=== PATIENT | male | born 1940 | race Caucasian/White ===

== ENCOUNTER 2018-12-16 14:07 | Emergency (ER) | payer MEDICARE, OTHER ==
[2018-12-16 14:19] VITALS: BP 151/80
--- NOTE | 2018-12-16 14:36 | UC ---
General HPI - HPI Summary HPI Summary: Pleasant 78 yo gentleman presents with spouse, c/o double vision in L eye for the last 4-5 hours. Over the last few months, has had short lived simlar symptoms. No recent fever / chills. No sob / cp / palpitations. No rash. Describes double vision as about 45 degrees up to the left in the left eye ( using R eye as reference) Hx aneurysm repain in 2006. 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 Residual sx of "no reflexes" in legs since 2006. Able to hike , with sticks, and has been hiking until recently in the [place], [place]. Was seen in the ED [place], for R flank pain - reports that no renal stone, thinks could be related to muscle spasm. No new weakness (hx BLE weakness d/t prior GB dz). Was outside doing yard work this am. - History of Current Complaint Chief Complaint: UCEye Stated Complaint: DOUBLE VISION Time Seen by Provider: 12/16/18 14:17 Hx Obtained From: Patient, Family/Curing Press Maintainer Pain Intensity: 0 - Allergy/Home Medications Allergies/Adverse Reactions: Allergies Allergy/AdvReac Type Severity Reaction Status Date / Time No Known Allergies Allergy Verified 12/16/18 14:09 Home Medications: Home Medications Bisoprolol TAB* [Zebeta TAB*] 5 mg PO DAILY 12/16/18 [History Confirmed 12/16/18 ] Multivit-Min/FA/Lycopen/Lutein [Centrum Silver Men Tablet] 1 each PO DAILY 12/16 [History Confirmed 12/16/18] Omeprazole CAP (NF) [Prilosec CAP* 20 MG] 20 mg PO DAILY 12/16/18 [History Confirmed 12/16/18] PMH/Surg Hx/FS Hx/Imm Hx Previously Healthy: Yes - Surgical History Surgical History: Yes Surgery Procedure, Year, and Place: bilat cataracts 2017. subarachnoid aneurysm repair 2006. rotator cuff repair. L ACL repai - Family History Known Family History: Positive: Non-Contributory - Social History Alcohol Use: Rare Substance Use Type: None Smoking Status (MU): Former Smoker Length of Time of Smoking/Using Tobacco: 20 years When Did the Patient Quit Smoking/Using Tobacco: 1982 Review of Systems All Other Systems Reviewed And Are Negative: Yes Constitutional: Positive: Negative Skin: Positive: Negative Eyes: Positive: Other - see hpi ENT: Positive: Other Respiratory: Positive: Negative Cardiovascular: Positive: Negative Gastrointestinal: Positive: Negative Genitourinary: Positive: Negative Motor: Positive: Other - see hpi Neurovascular: Positive: Other - see hpi Musculoskeletal: Positive: Other: - see hpi Neurological: Positive: Other Psychological: Positive: Negative Is Patient Immunocompromised?: No Physical Exam Triage Information Reviewed: Yes Appearance: Well-Appearing, Well-Nourished Vital Signs: Initial Vital Signs Temp 97.8 F 12/16/18 14:11 Pulse 70 12/16/18 14:11 Resp 20 12/16/18 14:11 BP 151/80 12/16/18 14:11 Pulse Ox 98 12/16/18 14:11 Vital Signs Reviewed: Yes Eye Exam: Other - PERRLA + periph 1vs2 finger lat vis navarrete evaluation L eye does not fully look superior and lateral ENT: Positive: Pharynx normal, Other - + sun exposure Neck exam: Normal - no esme carotid bruits Neck: Positive: Supple, Nontender Respiratory Exam: Normal Respiratory: Positive: Chest non-tender, Lungs clear, Normal breath sounds, No respiratory distress, No accessory muscle use Cardiovascular Exam: Normal Cardiovascular: Positive: RRR, No Murmur, Pulses Normal, Brisk Capillary Refill Abdominal Exam: Normal Abdomen Description: Positive: Nontender Musculoskeletal Exam: Other - moves x 4 exts, able to walk, per pt is baseline Neurological Exam: Other - see eye exam see ble notes + sense smell + LT x all facial dermatomes No droop Tongue protrudes ok Good shrug, + ax n sens present Able to swallow ok Psychological: Positive: Normal Response To Family Skin Exam: Normal - no visible or reported rash Course/Dx - Course Course Of Treatment: EKG - SR 68 bmp, pr 196 qtc 424 Reviewed coa / tx plan with pt and - I highly recommend ED evaluation and management. They carefully considered and will go. Decline EMS transport. Questions as posed answered to the best of my ability. Spoke with RUSS Andres 13:35 - Diagnoses Provider Diagnosis: Diplopia Discharge - Sign-Out/Discharge Documenting (check all that apply): Patient Departure All imaging exams completed and their final reports reviewed: No Studies - Discharge Plan Condition: Stable Disposition: HOME Patient Education Materials: Diplopia (ED) Referrals: Mika Umanzor MD [Primary Care Provider] - Additional Instructions: Go directly to the Emergency Department. Please stop and call 911 if problems in the meantime. - Billing Disposition and Condition Condition: STABLE Disposition: Home
== END 2018-12-16 14:42 | disposition home health service (06) ==
LOC: UCEAST 14:07
DX: H53.2 Diplopia (principal); Z87.891 Personal history of nicotine dependence
CPT/HCPCS: 99202; G0463

== ENCOUNTER 2019-07-29 07:40 | Inpatient (IN) | payer MEDICARE, OTHER ==
--- NOTE | 2019-07-21 16:32 | HP ---
HISTORY AND PHYSICAL: DATE OF ADMISSION/SURGERY: 07/29/19 DATE OF OFFICE VISIT: 07/18/19 SURGEON: Krys Javier MD * (DICTATED BY RUSS PALMER) PROCEDURE: Left total knee arthroplasty. CHIEF COMPLAINT: Left knee pain. HISTORY OF PRESENT ILLNESS: Mr. 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 He has failed conservative treatment and elected to proceed with a left total knee arthroplasty. PAST MEDICAL HISTORY: History of cerebral aneurysm, left carotid stenosis, history of Guillain-Fostoria syndrome, basal cell carcinoma, hypertension, renal failure and AFib. PAST SURGICAL HISTORY: Repair of cerebral aneurysm, left knee arthroscopy, right shoulder rotator cuff repair, and cataract removal. CURRENT MEDICATIONS: 1. Bisoprolol/hydrochlorothiazide daily. 2. Prilosec 20 mg a day. 3. Centrum Silver. 4. Tylenol as needed. 5. Benadryl Allergy 25 mg daily. 6. Ibuprofen. 7. 81 mg aspirin. ALLERGIES: No known drug allergies. FAMILY HISTORY: Coronary artery disease. SOCIAL HISTORY: He is a 79-year-old gentleman, lives with his . He does not smoke. REVIEW OF SYSTEMS: A complete 14-point review of systems was reviewed with the patient. Positive for GERD and kidney disease. He denies history of DVT, PE, hepatitis, HIV, or anesthesia problems. PHYSICAL EXAMINATION GENERAL: He is well developed, well nourished, in no acute distress. VITAL SIGNS: He stands 69 inches tall, weighs 251 pounds. His blood pressure is 158/82, his heart rate is 81. HEENT: Normocephalic, atraumatic. NECK: Supple. No palpable lymph nodes. PULMONARY: Lungs are clear to auscultation bilaterally. CARDIO: Regular rate and rhythm. Strong S1, S2. ABDOMEN: Soft, nontender, nondistended. NEUROLOGICAL: He is alert and oriented x3. MUSCULOSKELETAL: Left lower extremity, the skin is intact. There are no open wounds or abrasions. There is moderate effusion of the left knee joint. Some tenderness along the medial and lateral joint line. Range of motion is 20 to 100 degrees of flexion with significant patellofemoral crepitus. There is a significant varus deformity of the knee. There is no lower extremity reflexes on exam and he ambulates with a cane with an antalgic gait. He does have intact sensation and a 2+ dorsalis pedis pulse. ASSESSMENT AND PLAN: Mr. Leroy is a 79-year-old gentleman with end-stage osteoarthritis of the left knee. He has failed conservative treatment and elected to proceed with a left total knee arthroplasty. Surgery is scheduled for 07/29/[address] Javier discussed the risks and benefits of the surgery at today's visit and all of his questions were answered. He will follow up with Dr. Javier 2 weeks after the surgery. RUSS PALMER [id number]/[facility] #: [id number] MTDPatricia
[~2019-07-29 07:40] MED LIST: Buffered Lidocaine 1% SYRIN* 1 ML/SYRINGE INTRADERM ONE; Lactated Ringers 1000 ML Bag* 1,000 ML IV SCH
--- OUTSIDE RECORDS SUMMARY | 2019-07-29 07:44 | XMS REPORT | Continuity of Care Document ---
:1940 External Reference #:[id number] Author Name Krys Javier M.D. (transmitted by agent of provider Rakel Pastor) Address [address] [place] [address] [place] [address] Care Team Providers Name Role Phone Mika Umanzor MD - Family Medicine Care Team Information Estimator [phone] Alirio Cisneros, PH.D. - Neurological Care Team Information Estimator Surgery Problems Active Problems Provider Date History of Guillain Clifton syndrome Harshal Payne M.D. Onset: 08/27/2015 Localized, primary osteoarthritis Krys Javier M.D. Onset: 06/24/2019 Social History Type Date Description Comments Sex Unknown ETOH Use Drinks Alcoholic Beverages Occasionally Tobacco Use Start: Unknown End: Patient is a former smoker Unknown Recreational Drug Use Never Used Drugs Smoking Status Reviewed: 07/18/19 Patient is a former smoker Exercise Type/Frequency Exercises sporadically Allergies, Adverse Reactions, Alerts Description No Known Drug Allergies Medications Active Medications SIG Qnty Indications Ordering Provider Date Bisprolol HCTZ every day Harshal Payne, 12/17/2018 [place] Prilosec OTC 1 po qd Unknown 20mg Tablets Centrum Silver 1 po qd Unknown Tablets Tylenol 1 tab po prn pain Unknown 325mg Tablets Ibuprofen 2 tabs by mouth Unknown 200mg Capsules every 6 hours as needed Aspirin Adult Low Dose 1 by mouth every Unknown day 81mg Tablets Immunizations Description No Information Available Vital Signs Date Vital Result Comment 07/18/2019 7:59am Height 69 inches 5'9" Weight 251.00 lb Heart Rate 81 /min BP Systolic 158 mmHg BP Diastolic 82 mmHg Body Temperature 99.2 F Pain Level 0 BMI (Body Mass Index) 37.1 kg/m2 07/08/2019 9:38am Height 69 inches 5'9" Weight 256.50 lb with shoes Heart Rate 64 /min BP Systolic Sitting 128 mmHg BP Diastolic Sitting 86 mmHg BMI (Body Mass Index) 37.9 kg/m2 Results Description No Information Available Procedures Description No Information Available Medical Devices Description No Information Available Encounters Type Date Location Provider Dx Diagnosis Office Visit 06/24/2019 [facility] Krys Javier, M25.562 Pain in left knee 8:00a at [place] M25.462 Effusion, left knee M17.0 Bilateral primary osteoarthritis of knee M25.561 Pain in right knee M25.461 Effusion, right knee Assessments Date Code Description Provider 07/18/2019 M25.562 Pain in left knee Krys Javier M.D. 07/18/2019 M25.462 Effusion, left knee Krys Javier M.D. 07/18/2019 M17.0 Bilateral primary osteoarthritis of knee Krys Javier M.D. 07/08/2019 G61.0 Guillain-Clifton syndrome Harshal Payne M.D. 07/08/2019 R20.0 Anesthesia of skin Harshal Payne M.D. 06/24/2019 M25.562 Pain in left knee Krys Javier M.D. 06/24/2019 M25.462 Effusion, left knee Krys Javier M.D. 06/24/2019 M17.0 Bilateral primary osteoarthritis of knee Krys Javier M.D. 06/24/2019 M25.561 Pain in right knee Krys Javier M.D. 06/24/2019 M25.461 Effusion, right knee Krys Javier M.D. Plan of Treatment Future Appointment(s):07/29/2019 10:30 am - Krys Javier M.D. at [facility] at [place]/18/2019 - Krys Javier M.D.M25.562 Pain in left kneeFollow up:Follow up: 2 weeks after [id number] Effusion, left kneeM17.0 Bilateral primary osteoarthritis of knee Functional Status Description No Information Available Mental Status Description No Information Available Referrals Description No Information Available
--- OUTSIDE RECORDS SUMMARY | 2019-07-29 07:44 | XMS REPORT | Continuity of Care Document ---
:1940 External Reference #:[id number] Author Name Krys Javier M.D. (transmitted by agent of provider Amanda Carter) Address [address] [place] [address] Care Team Providers Name Role Phone Mika Umanzor MD - Family Medicine Care Team Information Fruit Or Nut Picker [phone] Alirio Cisneros, PH.D. - Neurological Care Team Information Fruit Or Nut Picker Surgery Problems Active Problems Provider Date History of Guillain Hutchinson syndrome Harshal Payne M.D. Onset: 08/27/2015 Localized, primary osteoarthritis Krys Javier M.D. Onset: 06/24/2019 Social History Type Date Description Comments Sex Unknown ETOH Use Drinks Alcoholic Beverages Occasionally Tobacco Use Start: Unknown End: Patient is a former smoker Unknown Smoking Status Reviewed: 06/24/19 Patient is a former smoker Exercise Type/Frequency Exercises sporadically Allergies, Adverse Reactions, Alerts Description No Known Drug Allergies Medications Active Medications SIG Qnty Indications Ordering Provider Date Bisprolol HCTZ every day Harshal Payne, 12/17/2018 [place] Prilosec OTC 1 po qd Unknown 20mg Tablets DR Centrum Silver 1 po qd Unknown Tablets Tylenol 1 tab po prn Unknown 325mg Tablets pain Benadryl Allergy 1 tab po prn 30caps Unknown 25mg Capsules Immunizations Description No Information Available Vital Signs Date Vital Result Comment 06/24/2019 8:23am Height 69 inches 5'9" Weight 244.00 lb Heart Rate 60 /min BP Systolic 140 mmHg BP Diastolic 78 mmHg Respiratory Rate 18 /min Pain Level 1 BMI (Body Mass Index) 36.0 kg/m2 12/17/2018 11:01am Height 69 inches 5'9" Weight 227.00 lb Heart Rate 76 /min BP Systolic Sitting 150 mmHg BP Diastolic Sitting 72 mmHg Respiratory Rate 18 /min BMI (Body Mass Index) 33.5 kg/m2 Results Test Acquired Date Facility Test Result H/L Range Note Inr/Protime 01/13/2019 [facility] Inr 0.99 Normal 0.82-1.[address] [place] [address] [phone] Laboratory test 01/13/2019 [facility] Partial 35.4 Normal 26.0 -38.[address] [place] [address] PTT [phone] CBC Auto Diff 01/13/2019 [facility] White Blood 6.7 10^3/uL Normal 3.5-10.[address] [place] [address] [phone] Red Blood Count 4.94 10^6/uL Normal 4.18-5.48 Hemoglobin 14.0 g/dL Normal 14.0-18.0 Hematocrit 42 % Normal 42-52 Mean Corpuscular Volume 86 fL Normal 80-94 Mean Corpuscular Hemoglobin 28 pg Normal 27-31 Mean Corpuscular HGB Conc 33 g/dL Normal 31-36 Red Cell Distribution Width 16 % High 10-15 Platelet Count 244 10^3/uL Normal 150-450 Mean Platelet Volume 8.1 fL Normal 7.4-10.4 Abs Neutrophils 4.4 10^3/uL Normal 1.5-7.7 Abs Lymphocytes 1.4 10^3/uL Normal 1.0-4.8 Abs Monocytes 0.8 10^3/uL Normal 0-0.8 Abs Eosinophils 0.2 10^3/uL Normal 0-0.6 Abs Basophils 0.1 10^3/uL Normal 0-0.2 Abs Nucleated RBC 0.0 10^3/uL Granulocyte % 64.5 % Lymphocyte % 21.0 % Monocyte % 11.3 % Eosinophil % 2.3 % Basophil % 0.9 % Nucleated Red Blood Cells % 0.0 Comp Metabolic 01/13/2019 [facility] Sodium 136 mmol/L Normal 135-[address] [place] [address] [phone] Potassium 4.7 mmol/L Normal 3.5-5.0 Chloride 103 mmol/L Normal 101-111 Co2 Carbon Dioxide 28 mmol/L Normal 22-32 Anion Gap 5 mmol/L Normal 2-11 Glucose 82 mg/dL Normal 70-100 Blood Urea Nitrogen 25 mg/dL High 6-24 Creatinine 0.97 mg/dL Normal 0.67-1.17 BUN/Creatinine Ratio 25.8 High 8-20 Calcium 9.6 mg/dL Normal 8.6-10.3 Total Protein 7.3 g/dL Normal 6.4-8.9 Albumin 4.4 g/dL Normal 3.2-5.2 Globulin 2.9 g/dL Normal 2-4 Albumin/Globulin Ratio 1.5 Normal 1-3 Total Bilirubin 0.50 mg/dL Normal 0.2-1.0 Alkaline Phosphatase 63 U/L Normal 34-104 Alt 25 U/L Normal 7-52 Ast 23 U/L Normal 13-39 Egfr Non- 75.2 >60 Egfr 91.1 >60 2 1 Standard intensity warfarin therapeutic range: 2.0-3.0 High intensity warfarin therapeutic range: 2.5-3.5 2 Because ethnic data is not always readily available, this report includes an eGFR for both -Americans and non- Americans. The National Kidney Disease Education Program (NKDEP) does not endorse the use of the MDRD equation for patients that are not between the ages of 18 and 70, are , have extremes of body size, muscle mass, or nutritional status, or are non- or non-. According to the National Kidney Foundation, irrespective of diagnosis, the stage of the disease is based on the level of kidney function: Stage Description GFR(mL/min/1.73 m(2)) 1 Kidney damage with normal or decreased GFR 90 2 Kidney damage with mild decrease in GFR 60-89 3 Moderate decrease in GFR 30-59 4 Severe decrease in GFR 15-29 5 Kidney failure <15 (or dialysis) Procedures Description No Information Available Medical Devices Description No Information Available Encounters Type Date Location Provider Dx Diagnosis Office Visit 06/24/2019 [facility] Krys Javier, M25.562 Pain in left knee 8:00a at [place] M25.462 Effusion, left knee M17.12 Unilateral primary osteoarthritis, left knee M25.561 Pain in right knee M25.461 Effusion, right knee M17.11 Unilateral primary osteoarthritis, right knee Assessments Date Code Description Provider 06/24/2019 M25.562 Pain in left knee Krys Javier M.D. 06/24/2019 M25.462 Effusion, left knee Krys Javier M.D. 06/24/2019 M17.12 Unilateral primary osteoarthritis, left knee Krys Javier M.D. 06/24/2019 M25.561 Pain in right knee Krys Javier M.D. 06/24/2019 M25.461 Effusion, right knee Krys Javier M.D. 06/24/2019 M17.11 Unilateral primary osteoarthritis, right knee Krys Javier M.D. Plan of Treatment 06/24/2019 - Krys Javier M.D.M25.562 Pain in left kneeM25.462 Effusion, left kneeM17.12 Unilateral primary osteoarthritis, left kneeNew Therapy:Physical TherapyFollow up:Follow up: 7-10 days before [id number] Pain in right kneeM25.461 Effusion, right kneeM17.11 Unilateral primary osteoarthritis, right knee Functional Status Description No Information Available Mental Status Description No Information Available Referrals Description No Information Available
--- OUTSIDE RECORDS SUMMARY | 2019-07-29 07:44 | XMS REPORT | Summary of Care ---
:1940 Author Organization [facility] Address [address] [place] [address] Care Team Providers Name Role Phone Mika Umanzor Primary Care Provider Reason for Visit Reason Comments Other pt presents for pre-op clearance. Left knee replacement scheduled for 04/03 Encounter Details Date Type Department Care Team Description 07/04/2019 Office Visit [facility] Mika Umanzor MD Pre-op evaluation (Primary Dx); Practice [address] [facility] Primary osteoarthritis of both knees; [address] [place] [address] Hypertension, unspecified type; [place] [address] Hx of Guillain-[place] syndrome; [phone] S/P Subarachnoid Hemorrhage (Fax) Allergies Active Allergy Reactions Severity Noted Date Comments No Known Allergies Other 11/09/2007 documented as of this encounter (statuses as of 07/04/2019) Medications Medication Sig Dispensed Refills Start Date End Date Status Centrum Silver Oral Tab Take 1 Tab by 0 Active mouth DAILY. Omeprazole Magnesium Take 1 Cap by 0 Active (PRILOSEC OTC PO) mouth DAILY. aspirin (ECOTRIN) 81 MG Take 81 mg by 0 Active Oral Tab EC mouth DAILY. bisoprolol-hydrochloroth Take 1 Tab by 90 Tab 1 04/26/2019 Active iazide (ZIAC) 2.5-6.25 mouth DAILY. MG Oral Tab acetaminophen (TYLENOL) Take by mouth. 0 Active 325 MG Oral Tab ibuprofen (MOTRIN) 200 Take 400 mg by 0 Active MG Oral Tab mouth EVERY SIX HOURS NEEDED for Pain. documented as of this encounter (statuses as of 07/04/2019) Active Problems Problem Noted Date Pseudophakia of both eyes 02/22/2019 Primary osteoarthritis of left knee 04/19/2015 Knee pain 01/08/2015 Knee pain, left 04/14/2013 Obesity 10/09/2012 Overview: This patient's BMI This patient's BMI has been calculated and is above average, and BMI management plan is completed. General patient education discussion including: weight loss link to reduction of r isk factors for cardiac and other diseases, importance of long-term maintenance treatment in weight loss, and accomplish with exercise as tolerated and diet control Kidney stone 12/16/2009 OA (osteoarthritis) of knee 12/16/2009 Dyslipidemia 12/14/2009 GERD (gastroesophageal reflux disease) 12/14/2009 Sensory hearing loss, bilateral 05/23/2009 S/P Subarachnoid Hemorrhage 06/21/2008 Overview: 09/16/2006, transferred to [facility]. Aneurysm of Right Middle Cerebral Artery 06/21/2008 Overview: S/P clipping procedure done at [facility] Hypertension documented as of this encounter (statuses as of 07/04/2019) Immunizations Name Administration Dates Next Due ZOSTER (ZOSTAVAX) VACCINE 04/29/2006 documented as of this encounter Social History Tobacco Use Types Packs/Day Years Used Date Former Smoker Pipe 20 Quit: 06/15/1979 Smokeless Tobacco: Never Used Alcohol Use Drinks/Week oz/Week Comments Yes 5 Standard drinks or equivalent 4.2 Sex Assigned at Date Recorded Not on file Job Start Date Occupation Industry Not on file Not on file Not on file Travel History Travel Start Travel End No recent travel history available. documented as of this encounter Last Filed Vital Signs Vital Sign Reading Time Taken Comments Blood Pressure 132/80 07/04/2019 1:43 PM EST Pulse 69 07/04/2019 1:43 PM EST Temperature - - Respiratory Rate - - Oxygen Saturation 95% 07/04/2019 1:43 PM EST Inhaled Oxygen Concentration - - Weight 113.7 kg (250 lb 9.6 oz) 07/04/2019 1:43 PM EST Height 175.3 cm (5' 9") 07/04/2019 1:43 PM EST Body Mass Index 37.01 07/04/2019 1:43 PM EST documented in this encounter Progress Notes Mika Umanzor MD - 07/04/2019 1:40 PM EST PATIENT: Giancarlo Leroy : 1940 DATE OF SERVICE: 07/04/2019 Subjective SUBJECTIVE: Giancarlo Leroy is a 79-y.o. male who presents to the office today for a preoperative consultation at the request of Dr Javier , who will perform a left knee replacement on 07/25. Patient complains of bilateral knee pain for at least a decade He was hesitant to do the replacement because of his history of Guillain [place] : and not sure if he as going to walk any better as still feels imbalanced And not sure if that is jis knees or GB . Patient denies cardiac symptoms: chest pain, palpitations, near-syncope, orthopnea, paroxysmal nocturnal dyspnea, claudication, lower extremity edema. Past history of pulmonary embolism/deep vein thrombosis: no. There is a history of bleeding complications: no Past history of anesthetic problem: No real anesthesia since Guillain [place] . Exercise capacity: Can you walk 2 blocks on level ground, Yes Count the number of risk factors in the revised Mcknight cardiac risk index. ( RCRI): 0 High risk procedure: eg vascular surgery, any open intraperitoneal or intrathoracic 0 History of ischemic heart disease (history of WI or a positive exercise test , current complaint of chest pain considered to be secondary to myocardial ischemia, use of nitrate therapy, or ECG with pathological Q waves; do not count prior coronary revascularization procedure unless one of the other criteria for ischemic heart disease is present) 0 Hx of CHF, either systolic or diastolic 1 History of cerebrovascular disease (TIA or Stroke) 0 Diabetes mellitus requiring treatment with insulin 0 Preoperative serum creatinine >2.0 mg/dl The risk of cardiac , nonfatal myocardial infarction, and nonfatal cardiac arrest according to the number of above risk predictors is estimated to be: One risk factor - 1.0 percent (95% CI: 0.5 - 1.4) Screening for sleep apnea: Stop-Bang Snoring: Do you snore loudly (louder than talking or heard through closed doors )? Tired: Do you often feel tired, fatigued, or sleepy during the day? Observed: Has anyone observed you stop breathing during your sleep? 1 Pressure: Do you have or are you being treated for high blood pressure? 1 BMI: >35 kg/m2? 1 Age: >50? 1 Neck circumference: >40 cm? 1 Gender: Male? "High risk" for LEXIE: (> =) 3 questions "yes" Screening for Alzheimer's 1. During the past 12 months, have you experienced confusion or memory loss that is happening more often or is getting worse? No 2. During the past 7 days, did you need help with others to perform everyday activities such as eating, getting dressed, grooming, bathing, walking, or using the toilet? No 3. During the past 7 days, did you need help from others to take care of things such as laundry and housekeeping, banking, shopping, using the telephone, food preparation, transportation, or taking your own medications? 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 Sinusitis, chronic Family History Problem Relation Age of Onset Heart Mother CHF Current Outpatient Medications Medication Sig acetaminophen (TYLENOL) 325 MG Oral Tab Take by mouth. aspirin (ECOTRIN) 81 MG Oral Tab EC Take 81 mg by mouth DAILY. bisoprolol-hydrochlorothiazide (ZIAC) 2.5-6.25 MG Oral Tab Take 1 Tab by mouth DAILY. Centrum Silver Oral Tab Take 1 Tab by mouth DAILY. ibuprofen (MOTRIN) 200 MG Oral Tab Take 400 mg by mouth EVERY SIX HOURS NEEDED for Pain. Omeprazole Magnesium (PRILOSEC OTC PO) Take 1 Cap by mouth DAILY. No current facility-administered medications for this visit. Allergies Allergen Reactions Nka [No Known Allergies] Other Social History Socioeconomic History Marital status: Spouse name: Not on file Number of children: Not on file Years of education: Not on file Highest education level: Not on file Occupational History Not on file Social Needs Financial resource strain: Not on file Food insecurity Worry: Not on file Inability: Not on file Transportation needs Medical: Not on file Non-medical: Not on file Tobacco Use Smoking status: Former Smoker Years: 20.00 Types: Pipe Last attempt to quit: 06/15/1979 Years since quittin.0 Smokeless tobacco: Never Used Substance and Sexual Activity Alcohol use: Yes Alcohol/week: 4.2 standard drinks Types: 5 Standard drinks or equivalent per week Drug use: No Sexual activity: Not on file Lifestyle Physical activity Days per week: Not on file Minutes per session: Not on file Stress: Not on file Relationships Social connections Talks on phone: Not on file Gets together: Not on file Attends church service: Not on file Active member of club or organization: Not on file Attends meetings of clubs or organizations: Not on file Relationship status: Not on file Intimate partner violence Fear of current or ex partner: Not on file Emotionally abused: Not on file Physically abused: Not on file Forced sexual activity: Not on file Other Topics Concern Not on file Social History Narrative Not on file REVIEW OF SYSTEMS: CONSTITUTIONAL: Weight up due to his decrease in activity . EARS, NOSE, MOUTH, THROAT and FACE: No URI. GASTROINTESTINAL: PPI works. BM normal GENITOURINARY: negative. NEUROLOGICAL: Reports Dr Payne said ok for surgery . BEHAVIORAL/PSYCH: negative. The patient has dentures: No The patient has hearing aids: Yes Objective OBJECTIVE: BP 132/80 (BP Location: Left arm, Patient Position: Sitting) | Pulse 69 | Ht 5 ' 9" (1.753 m) | Wt250 lb 9.6 oz (113.7 kg) | SpO2 95% | BMI 37.01 kg/m Exam is stable but up 10 lb no apparent distress, eyes clear, ears with aides oral-moist, no suspicious lesions. Neck supple, without masses. Heart regular without murmur. Lungs clear. Abdomensoft non-tender no masses. Extremity no clubbing cyanosis trace edema Knees in varus with decreased rom of the knees Skin no suspicious lesions. Dress and hygiene good Good eye contact Thoughts and speech normal Affect Appropriate Mood normal .EKG normal ASSESSMENT: No contraindications to planned surgery 1. Pre-op evaluation 2. Primary osteoarthritis of both knees 3. Hypertension, unspecified type well controlled, check lytes today 4. 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 5. S/P Subarachnoid Hemorrhage recent testing shows left carotid stenosed 6. Patient requires perioperative deep vein thrombosis prophylaxis: Per protocol. 7. Proceed with surgery as planned. No food or liquids the morning of surgery. Call surgeon if develop respiratory illness, fever, or other illness.. Author: Mika Umanzor MD 07/04/2019 14:02 documented in this encounter Plan of Treatment Date Type Specialty Care Team Description 08/10/2019 Office Visit Audiology [facility]ho[facility] Palafox, AuD [address] [place] [address] Name Type Priority Associated Diagnoses Order Schedule AMBULATORY 12 LEAD EKG EKG Routine Pre-op evaluation Ordered: 07/04/2019 (GLOBAL) Health Maintenance Due Date Last Done Comments DTaP/Tdap/Td Vaccines (1 - 1953 Tdap) HIV SCREENING 1957 ZOSTER IMMUNIZATION SERIES (2 06/24/2006 04/29/2006 of 3) FALL RISK ASSESSMENT 2007 PNEUMOCOCCAL 65+YRS (1 of 2 - 2007 PCV13) MEDICARE ANNUAL WELLNESS 06/19/2015 06/19/2014 VISIT DEPRESSION SCREENING 09/17/2019 09/16/2018, 09/16/2018 INFLUENZA VACCINE (#1) 2030 Postponed from 02/13/2019 (Other) HEPATITIS A IMMUNIZATION Aged Out No longer eligible based SERIES on patient's age to complete this topic HPV IMMUNIZATION SERIES Aged Out No longer eligible based on patient's age to complete this topic MENINGOCOCCAL VACCINE IMM Aged Out No longer eligible based on patient's age to complete this topic documented as of this encounter Goals Goal Patient Goal Associated Recent Patient-Stated? Author Type Problems Progress Blood Pressure Blood Pressure 132/80 No Noé, < 150/90 (07/04/2019 MD Mika 1:43 PM EST) Note: This is an individualized treatment (blood pressure) goal for Giancarlo Leroy: Displayed above (on the left) is your goal for blood pressure control. Your most recent blood pressure is also shown above, on the right. You should try to achieve blood pressures that are lower than your goal listed above (on the left). Weight loss vs. 18 mo Lifestyle 2.4 (07/04/2019 1:43 PM EST) No Mika Umanzor MD max (lbs) >= 10 Note: This is an individualized lifestyle goal for Giancarlo Leroy: Your body mass index (BMI) is more than 30. You should lose weight. A reasonable starting goal is to lose 10 pounds. Displayed above is how many pounds you have lost thus far towards your 10 pound weight loss goal. Take all prescribed medications as directed Self-management No Mika Umanzor MD Note: This is an individualized self-management goal for Giancarlo Leroy: Please take all prescribed medications as directed. 1. Do not skip doses. If you cannot afford your medications, talk with your doctor. 2. Use a pill reminder system such as a pill box if needed. Your pharmacist can help you with this. 3. Contact your Pharmacy 5 days before your medication runs out. If you cannot take your medications for any reasons, talk with your doctor. 4. Please bring all of your medication bottles and inhalers (or a list of all your medications/inhalers) with you to every visit. Potential barriers to meeting all of your care plan goals will continue to be addressed on an ongoing basis. documented as of this encounter Implants Implanted Type Area Nurse Outreach Case Manager Device Shelf Expiration Model / Serial Identifier Date / Lot Iol, [id number] 13.5 Diopter - [id number] STORZ [id number] / Implanted: Qty: 1 on 12/08/2016 by Jamie Lancaster MD at [facility] [id number] / Iol, [id number] 12.0 Diopter - [id number] STORZ [id number] / Implanted: Qty: 1 on 12/22/2016 by Jamie Lancaster MD at [facility] [id number] / documented as of this encounter Procedures Procedure Name Priority Date/Time Associated Diagnosis Comments BASIC METABOLIC Routine 07/04/2019 2:45 PM Pre-op evaluation Results for this PANEL EST procedure are in the results section. documented in this encounter Results BASIC METABOLIC PANEL (07/04/2019 2:45 PM EST) [facility] Signature Glucose 96 70 - 99 mg/dl [facility] BUN 20 9 - 20 mg/dl [facility] Creatinine 0.9 0.8 - 1.5 mg/dl [facility] Sodium 138 134 - 145 mmol/L [facility] Potassium 4.6 3.5 - 5.1 mmol/L [facility] Chloride 104 98 - 107 mmol/L [facility] CO2 25 22 - 30 mmol/L [facility] Calcium 9.6 8.3 - 10.1 mg/dl [facility] eGFR >60 See Interpretation [facility] Comment: Below ml/min/1.73ml GROUP Estimated GFR Interpretation: Sq LABORATORY Above 60ml/min/1.73m2 = Normal Renal Function 30-59 ml/min/1.73m2 = Stage 3 Chronic Kidney Disease 15-29 ml/min/1.73m2 = Stage 4 Chronic Kidney Disease Less than 15 ml/min/1.73m2 = Stage 5 Chronic Kidney Disease The GFR value is calculated using the Modification of Diet in Renal Disease ( MDRD) Study Equation which can be found at: https://www.kidney.org/content/zxmz-lgqum-obdrficc BUN/Creatinine 22 6 - 22 RATIO [facility]ORATORY Anion Gap 9 3 - 11 mmol/L [facility] Specimen Blood - Blood specimen (specimen) Performing Organization Address City/State[facility] Phone Number [facility] [address] [place] [address] [phone] documented in this encounter Visit Diagnoses Diagnosis Pre-op evaluation Preoperative examination, unspecified Primary osteoarthritis of both knees Primary localized osteoarthrosis, lower leg Hypertension, unspecified type Hx of Guillain[place] syndrome Personal history of other disorders of nervous system and sense organs S/P Subarachnoid Hemorrhage Subarachnoid hemorrhage documented in this encounter Insurance Payer Benefit Plan / Subscriber ID Effective Dates Phone Address Type Group AETNA MEDICARE AETNA MEDICARE xxxxxxxx 2017-Present [employer] ADVANTAGE ADVANTAGE Guarantor Name Account Type Relation to Date of Phone Billing Patient Address Giancarlo Leroy Personal/Family 1940 [id number] [phone] [place] (Work) [id number] documented as of this encounter
--- OUTSIDE RECORDS SUMMARY | 2019-07-29 07:44 | XMS REPORT | Continuity of Care Document ---
:1940 External Reference #:[id number] Author Name Krys Javier M.D. (transmitted by agent of provider Aaliyah Adair) Address [address] [place] [address] Care Team Providers Name Role Phone Mika Umanzor MD - Family Medicine Care Team Information Make Up Artist Alirio Cisneros, PH.D. - Neurological Care Team Information Make Up Artist Surgery Problems Active Problems Provider Date History of Guillain [place] syndrome Harshal Payne M.D. Onset: 08/27/2015 Localized, [...] Test Result H/L Range Note Inr/Protime 01/13/2019 [facility] Inr 0.99 Normal 0.82-1.[address] [place] [address] [phone] Laboratory test 01/13/2019 [facility] Partial 35.4 Normal 26.0 -38.[address] [place] [address] PTT [phone] CBC Auto Diff 01/13/2019 [facility] White Blood 6.7 10^3/uL Normal 3.5-10.[address] [place] [address] [phone] Red Blood Count 4.94 10^6/uL Normal 4.18-5.48 [...] Blood Cells % 0.0 Comp Metabolic 01/13/2019 [facility] Sodium 136 mmol/L Normal 135-[address] [place] [address] [phone] Potassium 4.7 mmol/L Normal 3.5-5.0 Chloride 103 [...] Medical Devices Description No Information Available Encounters Description No Information Available Assessments Date Code Description Provider 06/24/2019 M25.562 Pain in left knee Krys Javier M.D. 06/24/2019 M25.462 Effusion, left knee Krys Javier M.D. 06/24/2019 M17.12 Unilateral primary osteoarthritis, left knee Krys Javier M.D. 06/24/2019 M25.561 Pain in right knee Krys Javier M.D. 06/24/2019 M25.461 Effusion, right knee Krys Javier M.D. 06/24/2019 M17.11 Unilateral primary osteoarthritis, right knee Krys Javier M.D. Plan of Treatment Future Appointment(s):07/08/2019 9:45 am [facility] 8:00 am - Krys Javier M.D. at [facility] at Mqymvs5807/29/2019 10:30 am - Krys Javier M.D. at [facility] at Wzenxh0306/24/2019 - Krys Javier M.D.M25.562 Pain in left kneeM25.462 Effusion, left kneeM17.12 Unilateral primary osteoarthritis, left kneeNew Therapy:Physical TherapyFollow up:Follow up: 7-10 days before zstdypjM95.561 Pain in right kneeM25.461 Effusion, right kneeM17.11 Unilateral primary osteoarthritis, right knee Functional Status Description No Information Available Mental Status Description No Information Available Referrals Description No Information Available
--- OUTSIDE RECORDS SUMMARY | 2019-07-29 07:44 | XMS REPORT | Continuity of Care Document ---
:1940 External Reference #:[id number] Author Name Harshal Payne M.D. (transmitted by agent of provider Tigist Owens ) Address [address], [place] [address] Care Team Providers Name Role Phone Mika Umanzor MD - Family Medicine Care Team Information Flight Service Agent [phone] Alirio Cisneros, PH.D. - Neurological Care Team Information Flight Service Agent [phone] Surgery Problems Active Problems Provider Date History of Guillain [place] syndrome Harshal Payne M.D. Onset: 08/27/2015 Localized, primary osteoarthritis Krys Javier M.D. Onset: 06/24/2019 Social History Type Date Description Comments Sex Unknown ETOH Use Drinks Alcoholic Beverages Occasionally Tobacco Use Start: Unknown End: Patient is a former smoker Unknown Recreational Drug Use Never Used Drugs Smoking Status Reviewed: 07/08/19 Patient is a former smoker Exercise Type/Frequency [...] 200mg Capsules every 6 hours as needed Immunizations Description No Information Available Vital Signs Date Vital Result Comment 07/08/2019 9:38am Height 69 inches 5'9" Weight 256.50 lb with shoes Heart Rate 64 /min BP Systolic Sitting 128 mmHg BP Diastolic Sitting 86 mmHg BMI (Body Mass Index) 37.9 kg/m2 06/24/2019 8:23am Height 69 inches 5'9" Weight 244.00 lb Heart Rate 60 /min BP Systolic 140 mmHg BP Diastolic 78 mmHg Respiratory Rate 18 /min Pain Level 1 BMI (Body Mass Index) 36.0 kg/m2 Results Test Acquired Date Facility Test Result H/L Range Note Inr/Protime 01/13/2019 [facility] Inr 0.99 Normal 0.82-1.[address] [place] [address] [phone] Laboratory test 01/13/2019 [facility] Partial 35.4 Normal 26.0 -38.[address] [place] [address] PTT [phone] CBC Auto Diff 01/13/2019 [facility] White Blood 6.7 10^3/uL Normal 3.5-10.[address] [place] [address] [phone] Red Blood Count 4.94 10^6/uL Normal 4.18-5.48 [...] Blood Cells % 0.0 Comp Metabolic 01/13/2019 [facility] Sodium 136 mmol/L Normal 135-[address] [place] [address] [phone] Potassium 4.7 mmol/L Normal 3.5-5.0 Chloride 103 [...] Location Provider Dx Diagnosis Office Visit 06/24/2019 [facility] Krys Javier, M25.562 Pain in left knee 8:00a at [place] M.D. 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 07/08/2019 R20.0 Anesthesia of skin Harshal Payne M.D. 06/24/2019 M25.562 Pain in left knee Krys Javier M.D. 06/24/2019 M25.462 Effusion, left knee Krys Javier M.D. 06/24/2019 M17.0 Bilateral primary osteoarthritis of knee Krys Javier M.D. 06/24/2019 M25.561 Pain in right knee Krys Javier M.D. 06/24/2019 M25.461 Effusion, right knee Krys Javier M.D. Plan of Treatment Future Appointment(s):07/18/2019 8:00 am - Krys Javier M.D. at [facility] at Mrcgyv6107/29/2019 10:30 am - Krys Javier M.D. at [facility] at Jhvugv9207/08/2019 - Harshal Payne M.D.G61.0 Guillain-[place] syndromeFollow up:PRNR20.0 Anesthesia of skin Functional Status Description No Information Available Mental Status Description No Information Available Referrals Description No Information Available
[2019-07-29] MEDS ORDERED: ceFAZolin 2 GM in NS PREMIX(*) 2 GM/100 ML BAG IVPB ONE (08:17)
[2019-07-29] MEDS ORDERED: Propofol* 10 MG/ML 20 ML BTL ONE ×3 (09:51→12:24)
[2019-07-29] MEDS ORDERED: Lidocaine 2% PF * 5 ML VIAL ONE (09:51)
[2019-07-29] MEDS ORDERED: Midazolam* 1 MG/ML 2 ML VIAL (2 MG) ONE (09:51)
[2019-07-29] MEDS ORDERED: ROPIVACAINE 5 MG/ML 30 ML BTL (0.5%) ONE ×2 (09:52→10:31)
[2019-07-29] MEDS ORDERED: Ketorolac INJ* 30 MG/ML 1 ML VIAL ONE ×2 (10:05→12:22)
[2019-07-29] MEDS ORDERED: Remifentanil* 2 MG VIAL ONE (11:13)
[2019-07-29] MEDS ORDERED: KETAMINE HCL* 50 MG/ML 10 ML VIAL ONE (11:13)
[2019-07-29] MEDS ORDERED: Propofol* 500 MG/50 ML BTL ONE (11:13)
[2019-07-29] MEDS ORDERED: Phenylephrine 10 MG/ML VIAL* 1 ML VIAL ONE ×2 (11:35→11:36)
[2019-07-29] MEDS ORDERED: Propofol* 100 ML ONE ×2 (12:07→13:41)
[2019-07-29] MEDS ORDERED: Ondansetron INJ* 2 MG/ML VIAL ONE (12:22)
[2019-07-29] MEDS ORDERED: Dexamethasone IV* 4 MG/ML 1 ML (4 MG) ONE (12:22)
[2019-07-29] MEDS ORDERED: Metoclopramide IV* 5 MG/ML 2 ML VIAL ONE (12:22)
[2019-07-29] MEDS ORDERED: DiMENhydriNATE IV* 50 MG/ML VIAL IV PUSH PRN (13:51)
[2019-07-29] MEDS ORDERED: Naloxone* 0.4 MG/ML 1 ML VIAL IV PRN (13:51)
--- NOTE | 2019-07-29 14:02 | OP ---
Operative Report - Blank - Operative Report Date of Operation: 07/29/19 Note: CASA LEROY 1940 Date of Surgery: 07/29/19 Krys Javier MD Public Information Coordinator: Lyndsey SOLANO did help throughout the procedure with preparation of the knee, wound retraction, manipulation of the knee, and wound closure. Anesthesiologist: Dr. Mendoza Anesthesia Type: Spinal Preoperative Diagnosis: Left severe degenerative osteoarthritis of the knee Postoperative Diagnosis: As above Procedure Performed: Left Total Knee Arthroplasty Tourniquet time: 77 minutes Complications: None Specimen: Bone and cartilage from the left knee joint sent to pathology. Hardware Used: Cemented Leroy and Nephew total knee hardware was used - For the femur a size 7 left oxiniume legion posterior stabilized femoral component, for the tibia a size 7 left korey II tibial baseplate, for the insert a size 9mm 7 -8 posterior stabilized articular polyethylene insert, and for the patella a size 38 3-peg all poly patella. Brief History/Indication: CASA LEROY was known in clinic and had a history of severe left knee pain and swelling. He failed conservative treatment with anti- inflammatories, pain pills, intra-articular injections and physical therapy. He elected to undergo left total knee arthroplasty due to continued pain and decreased quality of life. Radiographs showed severe end stage osteoarthritis of the knee with bone on bone contact. Informed consent was obtained from the patient. He understood the risks of surgery included but were not limited to: bleeding, infection, damage to nearby structures, intraoperative fracture, nerve palsy, failure of the hardware, early loosening, knee stiffness or loss of motion, anesthesia complications, stroke, heart attack, blood clot and . He wished to proceed. Intra-Operative Findings: Intraoperatively the patient was noted to have severe loss of cartilage in all 3 compartments of the knee. He had 12 degree varus deformity and 20 degree flexion contracture to start the case. Description of the Procedure: CASA LEROY was identified in the preanesthesia unit. His left knee was marked as the correct operative side. Informed consent was signed and placed in the chart. The patient was taken to the operating room and placed under anesthesia without complication. A emmanuel catheter was placed. A tourniquet was placed on the left thigh. The left lower extremity was prepped and draped in the usual sterile fashion. Preoperative time-out was made to correctly identify the patient, side and site. Appropriate intraoperative antibiotics were given within one hour of incision. Tourniquet was inflated. A midline incision was made and carried sharply down to the extensor mechanism. A new 10 blade was used to make a standard medial parapatellar arthrotomy. The patella was subluxed laterally. Electrocautery was used to dissect soft tissue off the superomedial tibia to the midsagittal plane. The knee was flexed up. The anterior horn of the lateral meniscus and the ACL were sharply incised. A drill was used to enter the distal femur. The intramedullary distal femoral cutting guide was pinned on the distal femur. The oscillating saw was used to make the distal femoral cut. The external rotation guide was pinned on the distal femur and the distal femur was sized to a size 7. The size 7 multi-cutting jig was pinned on the distal femur. The oscillating saw was used to make the appropriate 4 chamfer cuts. Next the PCL was completely released. The extramedullary tibial cutting guide was pinned on the proximal tibia and the oscillating saw was used to make the proximal tibial cut perpendicular to the mechanical axis of the tibia. The bone was carefully removed. The knee was brought out into full extension. The spacer block was placed and had excellent fit with the knee in full extension. The medial and lateral ligaments were well balanced. The flexion and extension gaps were well balanced. The knee was flexed up. Lamina food crops farm hand was placed both medially and laterally. Any remaining meniscus was removed with electrocautery. Curved osteotome was used to remove any posterior osteophytes. The tibial tray and drop clau were placed and confirmed a satisfactory tibial cut. The size 7 left femoral trial was impacted onto the distal femur. This trial had excellent fit and stability. The box for the posterior stabilized implant was prepared using a box cut osteotome and a reamer. Next a tibial tray trial and 9 mm insert trial was placed. The knee was taken through a range of motion and had full extension to 130 degrees of flexion. Patellofemoral tracking was satisfactory. The patella was inverted and sized to a size 38. Three peg holes were drilled through the size 38 drill guide. The trial patella was placed and the knee was taken through a range of motion. There was satisfactory patellofemoral tracking. All trials were removed. The tibia was subluxed anteriorly and sized to a size 7. The proximal tibial was prepared with a size 7 keel punch. All bony cut surfaces were irrigated with sterile saline and dried. Final implants were cemented into place starting with the tibia, followed by the femur, and last the patella. A 9 mm insert trial was placed and the knee was brought into full extension. Tourniquet was turned down and the knee was copiously irrigated with sterile saline. Electrocautery was used to obtain meticulous hemostasis. Once the cement had fully cured, the insert trial was removed. Any excess cement was removed from around the hardware and capsule. Final insert chosen was a 9 mm posterior stabilized Korey II articular insert size 7-8. Stability of the insert was checked and noted to be stable. The extensor mechanism was closed using number 1 vicryls. The rest of the incision was closed in a layered fashion using 0 and 2-0 vicryls. The skin was closed using 3-0 nylon suture. Sterile xeroform, 4x4s and webril were used to cover the incision. Jose M wrap and cold pack were used to cover the dressings. The patients anesthesia was reversed without difficulty. He was taken to the PACU in stable condition. Intended weight-bearing will be as tolerated.
[2019-07-29] MEDS ORDERED: Acetaminophen IV 1GM/100ML * 100 ML ONE (14:07)
[2019-07-29] MEDS ORDERED: HYDROmorphone INJ1* 1 MG/ML SYRINGE ONE ×4 (14:09→15:42)
[2019-07-29] MEDS ORDERED: Ondansetron INJ* 2 MG/ML VIAL IV PRN (14:28)
[2019-07-29] MEDS ORDERED: oxyCODONE/Acetamin 5/325 MG* TAB PO PRN ×2 (14:28)
[2019-07-29] MEDS ORDERED: Magnesium Hydroxide LIQ* 30 ML UDC PO PRN (14:28)
[2019-07-29] MEDS ORDERED: Morphine INJ* 2 MG/ML 1 ML SYRINGE (TWO MG - NEW SYRINGE VERSION) IV PRN (14:28)
[2019-07-29] MEDS ORDERED: Ondansetron ODT TAB* 4 MG PO PRN (14:28)
[2019-07-29] MEDS ORDERED: Polyethylene Glycol 3350* 17 GM PACKET PO PRN (14:28)
[2019-07-29] MEDS ORDERED: diPHENhydraMINE PO* 25 MG PO PRN (14:28)
[2019-07-29] MEDS ORDERED: diPHENhydraMINE IV* 50 MG/ML 1 ml VIAL (BENADRYL) IV PRN (14:28)
[2019-07-29] MEDS ORDERED: Temazepam CAP* 15 MG PO PRN (14:28)
[2019-07-29] MEDS ORDERED: oxyCODONE TAB* 5 MG TAB ONE (14:39)
[2019-07-29] MEDS: HYDROmorphone INJ1* 1 MG/ML SYRINGE IV PRN ×2 (14:43→14:55)
[2019-07-29] MEDS: oxyCODONE TAB* 5 MG TAB PO PRN ×3 (14:46→23:25)
[2019-07-29] MEDS: Lactated Ringers 1000 ML Bag* 1,000 ML IV SCH (16:25)
[2019-07-29] MEDS: Cyclobenzaprine TAB* 10 MG PO PRN (16:51)
[2019-07-29] MEDS: traMADol TAB* 50 MG PO PRN (18:02)
[2019-07-29] MEDS: ceFAZolin 1 GM ADVAN(*) 1 GM in NS 0.9% 50 ML* 50 ML IVPB SCH (19:59)
[2019-07-29] MEDS: Magnesium Hydroxide LIQ* 30 ML UDC PO SCH (20:08)
[2019-07-29] MEDS: Docusate CAP* 100 MG PO SCH (20:08)
--- NOTE | 2019-07-29 20:51 | CONS ---
CONSULTATION REPORT: Patient: CASA LEROY /Age: 14 1940 79 Admission Date: 07/29/19 Provider: Tanya Yen NP HOSPITAL MEDICINE CONSULTATION REPORT: DATE OF CONSULT: 07/29/19 REQUESTING PROVIDER: Dr. Javier. CONSULTING PHYSICIAN: DR. Whitlock (Dictated by Tnaya Yen REFRACTORY GRINDER OPERATOR) REASON FOR CONSULT: Co-management of chronic disease. HISTORY OF PRESENT ILLNESS: Mr. 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 Javier. Please see dictated H&P by RUSS Chopra, for complete details. In brief, the patient had ongoing pain and failed conservative measures and therefore opted for hip replacement. In the postoperative period pt has complains of severe left hip pain only. The patient is very vague with answers as pain is too great at time of assessment. Hospitalist Medicine was consulted for management of the patient's chronic medical conditions. PAST MEDICAL HISTORY: 1. Atrial fibrillation. 2. Left carotid stenosis. 3. Cerebral aneurysm. 4. 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 5. Basal cell carcinoma. 6. Hypertension. 7. Renal failure. PAST SURGICAL HISTORY: 1. Repair of cerebral aneurysm. 2. Left knee arthroscopy. 3. Right shoulder rotator cuff repair 4. Cataract repair. MEDICATIONS: Out patient are: 1. Bisoprolol/HCTZ 2. Prilosec 20mg PO QD 3. Centrum Silver PO QD 4. Aspirin 81mg PO QD 5. Tylenol PO PRN 6. Ibuprofen PO PRN ALLERGIES: No known drug allergies. FAMILY HISTORY: Father , 86 years of age, dementia. Mother in her 90s likely related to heart failure. Sister is alive and well, 72 years of age, obesity only. SOCIAL HISTORY: Former smoker, quit greater than 30 years ago, alcohol rare, denies illicit drug use. Surrogate decision maker is the patient's spouse, Kandy Lin. The patient reports he is a DNR REVIEW OF SYSTEMS: Limited review of systems as the patient is in severe pain at this time. The patient denies any fevers, unexplained loss of weight, headaches, dizziness. Head, eyes, nose and throat: The patient denies any changes in vision. Denies changes in hearing. Denies any inability to swallow. Chest: The patient denies any chest pain, shortness of breath. Respiratory: The patient denies any shortness of breath on exertion. Abdomen: The patient denies any nausea or vomiting. States that he has regular bowel movements. Denies hematuria. Denies any losses of consciousness. Denies any seizures. Denies any skin ulcerations. PHYSICAL EXAM: At this time, Mr. Leroy is lying in bed, appears to be in severe pain, grimacing and occasional spasm in leg. The patient's head is atraumatic and normocephalic. Eyes: EOMs intact. Sclera anicteric. Oral mucosa appears moist. No oropharyngeal edema. Neck: Supple, no lymphatic nodes palpated. Lungs are clear throughout all lung navarrete. Cardiac: Heart sounds S1, S2, regular. No murmurs, rubs or gallops. Abdomen: Soft, round, nontender, bowel sounds positive x4 quadrants. Extremities: +2 radial pulses, +2 pedal pulses. Strength equal in continuous churn buttermaker, strength equal pedal flexion/ extension. Neuro: The patient is alert to self and place. The patient declines to answer date. Snowboarding Instructor equal. Speech is clear when speaking. No gross focal deficits. Skin is intact. Dressing is clean, dry and intact. DIAGNOSTIC STUDIES/LAB DATA: Laboratory data from 07/18/19: White blood cells 5.8, red blood cells 5.19, hemoglobin 14.9, hematocrit 44%, platelet count 250. INR 0.97. APTT 35.7. Sodium 136, potassium 5, chloride 103, carbon dioxide 26 , BUN 23, creatinine 1, glucose 79, TSH 3.46, thyroxine 8.29. AST 23, ALT 29. ASSESSMENT AND PLAN: Mr. 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 Hospital Medicine has been consulted to co- manage chronic illness. Plan of care is as follows: 1. Status post left hip arthroplasty, managed by Ortho. 2. Hypertension. The patient will continue his bisoprolol/hydrochlorothiazide. 3. Atrial fibrillation. The patient will continue bisoprolol/ hydrochlorothiazide. 4. DVT prophylaxis. Managed by Ortho. 5. Code status. The patient is full code at this time. Would like to be DNR 6. FEN. The patient can have cardiac diet with no caffeine restrictions. Assessment and plan has been discussed with Dr. Whitlock and he is in agreement with plan. Thank you for allowing us to participate in the care of this patient. We will follow during the admission. TANYA YEN, STELLA [id number]/[facility] #: [id number] JOHNNIE
[2019-07-29] MEDS: Acetaminophen TAB* 325 MG PO SCH (22:17)
[2019-07-30] MEDS: Lactated Ringers 1000 ML Bag* 1,000 ML IV SCH (02:25)
[2019-07-30] MEDS: Cyclobenzaprine TAB* 10 MG PO PRN (02:35)
[2019-07-30] MEDS: ceFAZolin 1 GM ADVAN(*) 1 GM in NS 0.9% 50 ML* 50 ML IVPB SCH ×2 (04:24→12:01)
[2019-07-30 05:47] LABS: Hematocrit 34 % (42-52); Hemoglobin 11.5 g/dL (14.0-18.0); Mean Platelet Volume 7.3 fL (7.4-10.4); Platelet Count 219 10^3/uL (150-450)
[2019-07-30 06:00] LABS: Calcium 8.5 mg/dL (8.6-10.3); Potassium 4.5 mmol/L (3.5-5.0)
[2019-07-30 06:06] LABS: BUN/Creatinine Ratio 20.8 (8-20); EGFR Non-African American 67.7 (>60)
[2019-07-30] MEDS: Acetaminophen TAB* 325 MG PO SCH ×2 (06:06→14:03)
[2019-07-30] MEDS: oxyCODONE TAB* 5 MG TAB PO PRN ×3 (08:10→15:46)
[2019-07-30] MEDS: Magnesium Hydroxide LIQ* 30 ML UDC PO SCH (08:12)
[2019-07-30] MEDS: Docusate CAP* 100 MG PO SCH (08:17)
[2019-07-30] MEDS ORDERED: Apixaban* 2.5 MG TAB PO SCH (09:00)
[2019-07-30] MEDS ORDERED: Bisoprolol TAB* 5 MG PO SCH (09:00)
[2019-07-30] MEDS ORDERED: Pantoprazole TAB * 40 MG TAB PO SCH (09:00)
[2019-07-30] MEDS ORDERED: Hydrochlorothiazide TAB* 25 MG PO SCH (09:00)
[2019-07-30] MEDS ORDERED: Vitamin THERAPEUTIC TAB PO SCH (09:00)
[2019-07-30] MEDS: traMADol TAB* 50 MG PO PRN (10:18)
--- NOTE | 2019-07-30 10:30 | DS ---
Orthopedic Discharge Summary - Discharge Summary Date of Admission:07/29/19 Date of Discharge: 07/30/19 Date of Surgery: 07/29/19 Attending Orthopedic Provider: Dr. Javier Pre-operative Diagnosis: Left knee osteoarthritis Operative Procedure: Left total knee arthroplasty Disposition of Patient: Home Home care vs Outpatient services: Outpatient services Condition of Patient: Stable Pain medication RX at discharge: Percocet and Flexeril sent to [facility] DVT prophylaxis RX at discharge: Eliquis sent to [facility] History: CASA ROSARIO is a 79 year old M with years of increasingly severe left knee pain. Patient has failed conservative management and has elected to undergo a Left total knee arthroplasty Hospital Course: CASA was admitted to [facility] on 07/29/19. Patient underwent a Left total knee arthroplasty without complication followed by a brief recovery in PACU and transfer to the Short Stay Surgical Unit in stable condition. Our hospitalist service, physical therapy and occupational therapy also participated in this patients care. Post-op day 1: patient was alert and in no acute distress. Dressing was clean, dry and intact. Dressing was changed, incision was clean, dry and intact. Operative extremity dorsiflexion and plantarflexion intact, sensation intact to light touch distally , DP2+. Patient was deemed to be medically and orthopedically stable for discharge. Physical therapy goals were met. Home Medications Medication Instructions Recorded Confirmed Type Bisoprolol/Hydrochlorothiazide 2.5 - 6.25 mg PO QAM 12/16/18 07/29/19 History [Bisoprolol-Hctz 2.5-6.25 mg Tb] Multivit-Min/FA/Lycopen/Lutein 1 each PO QAM 12/16/18 07/29/19 History [Centrum Silver Men Tablet] Omeprazole CAP (NF) [Prilosec CAP* 20 mg PO QAM 12/16/18 07/29/19 History 20 MG] Apixaban* [Eliquis*] 2.5 mg PO BID tab 07/30/19 Rx Cyclobenzaprine TAB* [Flexeril 10 10 mg PO Q6H PRN tab 07/30/19 Rx MG TAB*] oxyCODONE/Acetamin 5/325 MG* 1 tab PO Q4H PRN tab 07/30/19 Rx [Percocet 5/325 TAB*] oxyCODONE/Acetamin 5/325 MG* 2 tab PO Q4H PRN tab 07/30/19 Rx [Percocet 5/325 TAB*] Discharge Instructions following Orthopedic Surgery: Total knee replacement Activity: * Weight Bearing as tolerated * Continue physical therapy and occupational therapy exercises as shown * If you have elected to have home physical therapy, continue therapy exercises at home. If you have elected outpatient physical therapy, please start therapy as an outpatient right away. Wound care: * OK to shower on post-op day 3, no bathing, swimming, or submerging wound. * Use gentle soap, pat dry. Cover with gauze, SEAN wrap or tape. * If you elected to have a visiting home nurse, they will perform wound checks. Call Orthopedic office for: * Increased drainage * Redness * Increased pain * Fever Go to ER with shortness of breath or chest pain. Diet: * Regular diet * Increase fluids and fiber to prevent constipation. * Continue to use stool softeners, call office if no bowel motion within 48 hours. Medications See Home Medication List in your packet for medications that you should take after discharge. DVT Prophylaxis: Eliquis Dosin.5 mg, 1 tab every 12 hours x 30 days Pain Control: Percocet 5/325 mg 1 tab for moderate pain and 2 tabs for severe pain by mouth every 4 hours as needed. Maximum of 10 tabs per day. Hold for sedation , wean off as soon as pain allows Flexeril 10 mg 1 tab three times daily as needed for muscle spasm. Please note that Percocet contains Tylenol (acetaminophen). Maximum daily dose of Tylenol is 4000 mg from all sources. Antibiotics are required prior to any dental work. FOLLOW UP: Follow up with Dr. Javier Within 10-14 days, call for appointment Please call our office with any questions or concerns ([phone])
[2019-07-30 15:44] VITALS: BP 141/67
== END 2019-07-30 16:45 | disposition home or self-care (01) | DRG 470 ==
LOC: AA 07:40 → SSU 14:28
PROVIDERS: ADMIT Orthopaedic Surgery Adult Reconstructive Orthopaedic Surgery; ATTEND Orthopaedic Surgery Adult Reconstructive Orthopaedic Surgery
PROC: 0SRD069 Replacement of Left Knee Joint with Oxidized Zirconium on Polyethylene Synthetic Substitute, Cemented, Open Approach (ICD-10-PCS; principal; 2019-07-29 10:00)
DX: M17.12 Unilateral primary osteoarthritis, left knee (principal); G61.0 Guillain-Barre syndrome; I10 Essential (primary) hypertension; I48.91 Unspecified atrial fibrillation; I65.22 Occlusion and stenosis of left carotid artery; K21.9 Gastro-esophageal reflux disease without esophagitis; C44.91 Basal cell carcinoma of skin, unspecified; M25.762 Osteophyte, left knee; Z66 Do not resuscitate; Z79.82 Long term (current) use of aspirin; Z79.1 Long term (current) use of non-steroidal anti-inflammatories (NSAID); Z79.899 Other long term (current) drug therapy; Z82.49 Family history of ischemic heart disease and other diseases of the circulatory system
CPT/HCPCS: 36415; 76000; 80048; 85014; 85018; 85049; 88304; 88311; A9270-GY; C1776; J0690; J1100; J1170; J1885; J2250; J2405; J2704; J2765; J2795

== ENCOUNTER 2022-05-20 10:13 | Observation (INO) ==
[~2022-05-20 10:13] MED LIST changes: +Buffered Lidocaine 1% SYRIN 1 ml INTRADERM ONE; -Buffered Lidocaine 1% SYRIN* 1 ML/SYRINGE INTRADERM ONE; -Lactated Ringers 1000 ML Bag* 1,000 ML IV SCH; +Lactated Ringers 1000 ml BAG 1,000 ML IV SCH; +ROPIVACAINE 5 MG/ML 30 ML BTL (0.5%) ONE
[2022-05-20] MEDS ORDERED: Propofol 10 MG/ML 20 ML BTL ONE ×3 (10:33→15:03)
[2022-05-20] MEDS ORDERED: Lidocaine 2% PF 5 ML VIAL ONE (10:33)
[2022-05-20] MEDS ORDERED: fentaNYL 250 mcg/5 ml 50 MCG/ML 5 ml VIAL (250 MCG) ONE (10:54)
[2022-05-20] MEDS ORDERED: Ketamine HCL 50 mg/ml 10 ml VIAL (500 MG) ONE (10:55)
[2022-05-20] MEDS ORDERED: ceFAZolin 2 GM PREMIX 2 GM/50 ML BAG ONE (10:56)
[2022-05-20] MEDS ORDERED: Ondansetron 4 mg VIAL 2 MG/ML 2 ml VIAL IV PRN ×2 (11:38→13:29)
[2022-05-20] MEDS ORDERED: Acetaminophen IV 1 GM/100ML 1,000 MG/100 ML BAG IV PRN (11:38)
[2022-05-20] MEDS ORDERED: HYDROmorphone 1 MG/1 ML SYRINGE IV PRN (11:38)
[2022-05-20] MEDS ORDERED: Naloxone 0.4 mg VIAL 0.4 mg/ml 1 ml VIAL IV PRN (11:38)
[2022-05-20] MEDS ORDERED: Midazolam 2 mg/2 ml VIAL 1 mg/ml 2 ml VIAL (2 mg) ONE (11:56)
[2022-05-20] MEDS ORDERED: ROPIVACAINE 5 MG/ML 30 ML BTL (0.5%) ONE ×2 (12:04→12:56)
[2022-05-20] MEDS ORDERED: Sterile Water for Inj 10 ML ONE (12:59)
[2022-05-20] MEDS ORDERED: Glycopyrrolate IV 0.2 MG/ML 1 ML VIAL ONE (13:06)
[2022-05-20] MEDS ORDERED: Lactulose 30 ml UDC PO PRN (13:29)
[2022-05-20] MEDS ORDERED: Ondansetron ODT 4 mg TAB 4 MG TAB PO PRN (13:29)
[2022-05-20] MEDS ORDERED: Magnesium Hydroxide LIQ 30 ML UDC PO PRN (13:29)
[2022-05-20] MEDS ORDERED: Morphine 2 MG/ML SYRINGE IV PRN (13:29)
[2022-05-20] MEDS ORDERED: Labetalol IV 5 MG/ML 20 ml VIAL ONE (13:36)
[2022-05-20] MEDS ORDERED: Acetaminophen IV 1 GM/100ML 1,000 MG/100 ML BAG IV ONE (14:00)
[2022-05-20] MEDS ORDERED: Ondansetron 4 mg VIAL 2 MG/ML 2 ml VIAL ONE (14:56)
[2022-05-20] MEDS ORDERED: fentaNYL 100 mcg/2 ml 50 MCG/ML VIAL ONE ×2 (15:53→16:19)
[2022-05-20] MEDS: fentaNYL 100 mcg/2 ml 50 MCG/ML VIAL IV PRN ×3 (15:55→16:20)
[2022-05-20] MEDS: Lactated Ringers 1000 ml BAG 1,000 ML IV SCH (17:30)
[2022-05-20] MEDS: Magnesium Hydroxide LIQ 30 ML UDC PO SCH (20:03)
[2022-05-20] MEDS: ceFAZolin 1 GM ADVAN 1 GM in NS 0.9% 50 ML 50 ML IVPB SCH (22:12)
[2022-05-21] MEDS: Lactated Ringers 1000 ml BAG 1,000 ML IV SCH (05:04)
[2022-05-21] MEDS: ceFAZolin 1 GM ADVAN 1 GM in NS 0.9% 50 ML 50 ML IVPB SCH ×2 (05:52→13:10)
[2022-05-21 06:25] LABS: Hematocrit 38 % (42-52); Hemoglobin 12.4 g/dL (14.0-18.0); Platelet Count 225 10^3/uL (150-450)
[2022-05-21 07:18] LABS: Calcium 8.8 mg/dL (8.6-10.3); eGFR CKD-EPI 79.9 (>60)
[2022-05-21 07:37] LABS: Potassium 5.2 mmol/L (3.5-5.0)
[2022-05-21] MEDS ORDERED: BISOPROLOL HYDROCHLOROTHIAZIDE PO SCH (09:00)
[2022-05-21] MEDS ORDERED: Vitamin THERAPEUTIC TAB PO SCH (09:00)
[2022-05-21] MEDS: Magnesium Hydroxide LIQ 30 ML UDC PO SCH (09:25)
[2022-05-21 12:01] VITALS: BP 139/64
== END 2022-05-21 14:32 | disposition home or self-care (01) ==
LOC: OR 10:13 → SSU 10:13 → EDSTATUS 12:45
PROVIDERS: ADMIT Orthopaedic Surgery Adult Reconstructive Orthopaedic Surgery; ATTEND Orthopaedic Surgery Adult Reconstructive Orthopaedic Surgery

== ENCOUNTER 2023-04-03 13:44 | Observation (INO) ==
[2023-04-03] MEDS ORDERED: Lactated Ringers 1000 ml BAG 1,000 ML IV ONE (13:56)
[2023-04-03] MEDS ORDERED: Morphine 4 MG/ML VIAL (1 ml) IV ONE ×2 (13:56→15:32)
[2023-04-03] MEDS ORDERED: Ondansetron 4 mg VIAL 2 MG/ML 2 ml VIAL IV ONE (13:56)
[2023-04-03 14:10] LABS: ABS Basophils 0.1 10^3/uL (0.0-0.1); ABS Eosinophils 0.1 10^3/uL (0.0-0.5); ABS Lymphocytes 1.1 10^3/uL (1.0-4.8); ABS Monocytes 1.2 10^3/uL (0.0-1.1); Eosinophil % 0.6 %; Hematocrit 43.3 % (38-53); Hemoglobin 14.6 g/dL (13.2-16.3); Lymphocyte % 7.8 %; Mean Corpuscular Hemoglobin 26.1 pg (27-33); Mean Corpuscular Hgb Conc 33.7 g/dL (31-36); Mean Corpuscular Volume 77.4 fL (80-97); Mean Platelet Volume 7.1 fL (7.5-11.2); Platelet Count 274 10^3/uL (150-450); Red Cell Distribution Width 17.8 % (12-17); White Blood Count 14.6 10^3/uL (3.6-10.2)
[2023-04-03 14:29] LABS: Albumin 4.6 g/dL (3.2-5.2); Calcium 9.7 mg/dL (8.6-10.3); Potassium 5.3 mmol/L (3.5-5.0); Total Bilirubin 0.5 mg/dL (0.2-1.0)
[2023-04-03 14:35] LABS: Albumin/Globulin Ratio 1.5 (1-3); Creatinine, Serum 1.84 mg/dL (0.67-1.17); Globulin 3.1 g/dL (2-4); Total Protein 7.7 g/dL (6.4-8.9); eGFR CKD-EPI 36.6 (>60)
[2023-04-03] MEDS ORDERED: cefTRIAXone 2 gm/50 mL D5W 2 GM/50 ML BAG IV ONE (14:52)
[2023-04-03] MEDS ORDERED: Acetaminophen IV 1 GM/100ML 1,000 MG/100 ML BAG IV PRN (15:47)
[2023-04-03 16:04] LABS: Urine Appearance Clear; Urine Bilirubin Negative (Negative); Urine Blood Negative (Negative); Urine Color Yellow; Urine Glucose Negative (Negative); Urine Ketones 1+ (Negative); Urine Nitrite Negative (Negative); Urine Protein 2+(100 mg/dL) (Negative); Urine Specific Gravity 1.015 (1.002-1.030); Urine Urobilinogen Negative (Negative)
[2023-04-03 16:11] LABS: Urine Bacteria Absent (Absent); Urine Red Blood Cell Trace(0-2/hpf) (Absent); Urine White Blood Cell Trace(0-5/hpf) (Absent)
[2023-04-03] MEDS ORDERED: Ondansetron 4 mg VIAL 2 MG/ML 2 ml VIAL IV PRN (18:00)
[2023-04-03] MEDS: NS 0.9% 1000 ml BAG 1,000 ML IV SCH (21:57)
[2023-04-03] MEDS: Latanoprost 0.005% 2.5 ml BTL BOTH EYES SCH (22:26)
[2023-04-04] MEDS: NS 0.9% 1000 ml BAG 1,000 ML IV SCH ×2 (04:49→16:06)
[2023-04-04 06:35] LABS: Hematocrit 37.9 % (38-53); Hemoglobin 12.6 g/dL (13.2-16.3); Mean Corpuscular Hemoglobin 25.9 pg (27-33); Mean Corpuscular Hgb Conc 33.2 g/dL (31-36); Mean Corpuscular Volume 77.8 fL (80-97); Mean Platelet Volume 7.5 fL (7.5-11.2); Platelet Count 212 10^3/uL (150-450); Red Blood Count 4.87 10^6/uL (4.06-5.63); Red Cell Distribution Width 17.7 % (12-17)
[2023-04-04 06:47] LABS: Calcium 8.6 mg/dL (8.6-10.3); Creatinine, Serum 1.68 mg/dL (0.67-1.17); Magnesium 1.8 mg/dL (1.9-2.7); Potassium 4.4 mmol/L (3.5-5.0); eGFR CKD-EPI 40.8 (>60)
[2023-04-04] MEDS ORDERED: Propofol 10 MG/ML 20 ML BTL ONE (08:39)
[2023-04-04] MEDS ORDERED: Lidocaine 2% PF 5 ML VIAL ONE (08:39)
[2023-04-04] MEDS ORDERED: fentaNYL 100 mcg/2 ml 50 MCG/ML VIAL ONE (08:39)
[2023-04-04] MEDS ORDERED: BISOPROLOL HYDROCHLOROTHIAZIDE PO SCH (09:00)
[2023-04-04] MEDS: BISOPROLOL HYDROCHLOROTHIAZIDE PO SCH (09:09)
[2023-04-04] MEDS ORDERED: Phenylephrine 40 mcg/mL 10mL (400mcg) SYRINGE ONE (09:36)
[2023-04-04] MEDS ORDERED: Naloxone 0.4 mg VIAL 0.4 mg/ml 1 ml VIAL IV PRN (09:54)
[2023-04-04] MEDS ORDERED: Ondansetron 4 mg VIAL 2 MG/ML 2 ml VIAL IV PRN (09:54)
[2023-04-04] MEDS ORDERED: fentaNYL 100 mcg/2 ml 50 MCG/ML VIAL IV PRN (09:54)
[2023-04-04] MEDS ORDERED: Ondansetron 4 mg VIAL 2 MG/ML 2 ml VIAL ONE (10:14)
[2023-04-04] MEDS ORDERED: cefTRIAXone 2 gm/50 mL D5W 2 GM/50 ML BAG IV SCH (16:00)
[2023-04-04] MEDS: Latanoprost 0.005% 2.5 ml BTL BOTH EYES SCH (23:09)
[2023-04-05] MEDS: NS 0.9% 1000 ml BAG 1,000 ML IV SCH (01:58)
[2023-04-05 06:10] LABS: Albumin/Globulin Ratio 1.3 (1-3); Calcium 9.2 mg/dL (8.6-10.3); Creatinine, Serum 0.98 mg/dL (0.67-1.17); Potassium 4.3 mmol/L (3.5-5.0); Total Bilirubin 0.4 mg/dL (0.2-1.0)
[2023-04-05] MEDS: BISOPROLOL HYDROCHLOROTHIAZIDE PO SCH (08:05)
[2023-04-05 09:01] VITALS: BP 172/83
== END 2023-04-05 09:58 | disposition home or self-care (01) ==
LOC: ED 13:44 → EDHOLD 13:44 → SUATTDRO 15:41 → SSU 20:19
PROVIDERS: ADMIT Student in an Organized Health Care Education/Training Program; ATTEND Internal Medicine Hematology & Oncology